=== PATIENT | male | born 1975 ===

== ENCOUNTER 2020-09-24 11:25 | Emergency (ER) | payer MEDICAID, OTHER ==
[~2020-09-24] VITALS: Ht 157.5 cm; Wt 56.7 kg
[2020-09-24 12:50] VITALS: BP 157/91
[2020-09-24 13:16] LABS: Urine Bacteria MOD /hpf (None Seen); Urine Blood 2+ /uL (Negative); Urine Mucus FEW (None Seen); Urine Specific Gravity 1.022 (1.001-1.035); Urine WBC 254 /hpf (0 - 3)
[2020-09-24] MEDS ORDERED: IBUPROFEN 800 MG TAB PO ONE (13:30)
[2020-09-24] MEDS ORDERED: cefTRIAXone SOD 1,000 MG VL IM ONE (14:15)
== END 2020-09-24 14:39 | disposition home or self-care (01) ==
LOC: ER 11:25
DX: N39.0 Urinary tract infection, site not specified (principal); N20.0 Calculus of kidney; K86.1 Other chronic pancreatitis; E11.9 Type 2 diabetes mellitus without complications
CPT/HCPCS: 74176; 81001; 96372; 99284; J0696